=== PATIENT | female | born 1935 | race Caucasian/White ===

== ENCOUNTER → 2019-11-03 13:48 | Outpatient (CLI) | payer MEDICARE, BC ==
[2014-01-15 12:59] VITALS: BMI 26.9
[~2019-11-03 13:48] MED LIST: COUMADIN2.5 MG PO; COUMADIN5 MG PO; LEXAPRO20 MG PO; LORCET PLUS TAB1 TAB PO; LUNESTA3 MG PO; NEXIUM40 MG PO; NORVASC5 MG PO; RYTHMOL225 MG PO; SYSTANE NIGHTT3.5 GM EACH EYE; ULTRAM50 MG PO; VITAMIN D50000 UNIT PO; WELCHOL625 MG PO; XANAX1 MG PO; ZESTRIL20 MG PO
== END | disposition home or self-care (01) ==
LOC: D.CT 13:48
PROVIDERS: ATTEND Family Medicine
DX: N32.9 Bladder disorder, unspecified (principal); N19 Unspecified kidney failure; I10 Essential (primary) hypertension; I50.43 Acute on chronic combined systolic (congestive) and diastolic (congestive) heart failure; E78.5 Hyperlipidemia, unspecified; E56.9 Vitamin deficiency, unspecified; E87.6 Hypokalemia; I48.91 Unspecified atrial fibrillation

== ENCOUNTER → 2021-01-29 15:32 | Outpatient (CLI) | payer MEDICARE, BC ==
[2014-01-15 12:59] VITALS: BMI 26.9
[2021-01-29 15:51] LABS: BASOPHILS 0.2 % (0-2); EOSINOPHILS 0.5 % (0-7); HEMOGLOBIN 10.2 g/dL (12-16); IMMATURE GRANULOCYTES 0.2 % (0-5); LYMPHOCYTE ABS# 1.04 10x3/uL (1.18-3.74); LYMPHOCYTES 16.3 % (15-50); MCH 27.5 pg (26.0-34.0); MCHC 31.9 g/dL (31.0-37.0); MCV 86.3 fL (80.0-100.0); MEAN PLATELET VOLUME 9.4 fL (7.4-10.4); MONOCYTES 9.7 % (2-11); NEUTROPHIL ABS# 4.69 10x3/uL (1.56-6.13); NEUTROPHILS 73.1 % (40-80); PLATELET COUNT 254 10x3/uL (130-400); RBC 3.71 10x6/uL (4.00-5.40); WBC 6.4 10x3/uL (4.8-10.8)
[2021-01-29 15:52] LABS: BILIRUBIN NEGATIVE (NEGATIVE); KETONE NEGATIVE (NEGATIVE); NITRITE POSITIVE (NEGATIVE); UROBILINOGEN NORMAL mg/dL (< 2)
[2021-01-29 15:56] LABS: WHITE CELLS - URINE 0-5 HPF (0-4)
[2021-01-29 15:57] LABS: BACTERIA MANY HPF (NONE SEEN); SQUAMOUS EPITHELIAL NONE SEEN HPF (0-4)
[2021-01-29 16:08] LABS: ANION GAP 11.5 mmol/L (8-16); CALCIUM 8.4 mg/dL (8.5-10.1); CARBON DIOXIDE 28.9 mmol/L (21.0-32.0); CREATININE - SERUM 1.2 mg/dL (0.6-1.3); POTASSIUM - SERUM 4.4 mmol/L (3.5-5.1)
== END | disposition home or self-care (01) ==
LOC: D.LABREF 15:32
PROVIDERS: ATTEND Legal Medicine
DX: N39.0 Urinary tract infection, site not specified (principal); R68.89 Other general symptoms and signs